=== PATIENT | female | born 1965 | race Caucasian/White ===

== ENCOUNTER 2017-07-01 18:29 | Emergency (ER) | payer SELFPAY ==
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
[2017-07-01 18:44] VITALS: BP 114/70; PULSE 68; TEMP 97.2; BMI 20.1
[2017-07-01] MEDS ORDERED: SODIUM CHLORIDE 0.9% 1000 ML INFUS.BAG IV ONE (18:44)
[2017-07-01] MEDS ORDERED: METOCLOPRAMIDE HCL INJECTION 10 MG/2 ML VIAL IVPUSH ONE (18:44)
[2017-07-01] MEDS ORDERED: ACETAMINOPHEN 1000 MG/100 ML VIAL (NON FORMULARY) IVPB ONE (18:45)
[2017-07-01] MEDS ORDERED: ACETAMINOPHEN INJECTION 100 ML IVPB ONE (19:05)
--- NOTE | 2017-07-01 19:34 | PDOC ---
*Physical Exam - Vital Signs Last Vital Signs Temp Pulse Resp BP Pulse Ox 97.2 F L 68 20 114/70 97 07/01/17 18:29 07/01/17 18:29 07/01/17 18:29 07/01/17 18:29 07/01/17 18:29 ED Treatment Course - LABORATORY CBC & Chemistry Diagram: 07/01/17 19:13 07/01/17 19:16 - ADDITIONAL ORDERS Additional order review: Laboratory Results 07/01/17 19:16 PT with INR Cancelled INR Cancelled - Medications Given in the ED: ED Medications Discontinued Medications Generic Name Dose Route Start Last Admin Trade Name Katie PRN Reason Stop Dose Admin Acetaminophen 1,000 mg 07/01/17 18:45 07/01/17 19:16 Ofirmev Injection - IVPB 07/01/17 18:46 1,000 mg ONCE ONE Administration Diphenhydramine HCl 12.5 mg 07/01/17 18:44 07/01/17 19:15 Benadryl Injection - IVPUSH 07/01/17 18:45 12.5 mg ONCE ONE Administration Metoclopramide HCl 10 mg 07/01/17 18:44 07/01/17 19:15 Reglan Injection - IVPUSH 07/01/17 18:45 10 mg ONCE ONE Administration Sodium Chloride 1,000 ml 07/01/17 18:44 07/01/17 19:15 Normal Saline - IV 07/01/17 18:45 1,000 ml ONCE ONE Administration Progress Note - Progress Note Progress Note: Care of this patient was transferred to co from Dr. Nevarez at 1900 hrs. Patient is a 52-year-old female who comes in complaining of a migraine headache. Patient has history of migraine headaches that have been stable and her last one was over 2 years ago. Patient said this migraine is much different than A the otherwise she's had it is associated with nausea and vomiting. Patient is otherwise healthy. Workup and head CT are pending 20:[address] is still pending Reevaluation of patient patient feels better no further vomiting sleeping comfortably 21:30 Patient woke up in complaining of some pain still and some nausea so patient was given Toradol, Zofran and some morphine. 22:30 Patient said she feels much better after the Toradol, Zofran and morphine. CT head no acute intracranial pathology Assessment and plan: This is a 52-year-old female who comes in with a migraine headache that is atypical for her. Patient had a complete workup because it is atypical for her. Patient workup was negative for any acute pathology including a head CT labs. Patient was given Reglan, Benadryl and fluids in the emergency room and feels better. Patient does have a neurologist she can follow-up with patient discharged home to follow-up with her neurologist. *DC/Admit/Observation/Transfer Diagnosis at time of Disposition: Migraine - Discharge Dispostion Disposition: HOME Admit: No - Referrals - Patient Instructions Additional Instructions: Continue your medications as prescribed for your migraine. I am sending a prescription for some nausea medication to your pharmacy get it filled U can take it as often as 3 times a day if needed. Follow-up with your neurologist. Return to the emergency department immediately with ANY new, persistent or worsening symptoms. Continue any medications as previously prescribed by your physician. You should follow up with your primary doctor as soon as possible regarding today's emergency department visit. . Please make sure your doctor reviews the results of your emergency evaluation. Thank you for coming to the Emergency Department today for your care. It was a pleasure to see you today. Please note that your evaluation is INCOMPLETE until you follow-up with your doctor. - Post Discharge Activity
[2017-07-01 19:40] LABS: ACTIVATED PTT 25.6 SECONDS (24.0-38.9)
[2017-07-01 19:41] LABS: BASOPHIL 1.2 % (0-2.0); EOSINOPHIL 0.6 % (0-4.5); MCH 27.5 pg (25.7-33.7); MCHC 33.1 g/dl (32.0-36.0); MEAN CELL VOLUME 83.1 fl (80-96); MEAN PLT VOLUME 9.9 fl (7.5-11.1); NEUTROPHILS 81.5 % (42.8-82.8); PLATELET COUNT 483 K/MM3 (134-434); RDW 13.1 % (11.6-15.6); WHITE BLOOD COUNT 9.9 K/mm3 (4.0-10.8)
[2017-07-01 19:44] LABS: INR 1.06 (0.82-1.09); PROTHROMBIN TIME (PATIENT) 11.8 SEC (10.2-13.0)
[2017-07-01 19:59] LABS: PH,URINE 7.5 (4.5-8); URINE APPEARANCE Cloudy; URINE BILIRUBIN Negative (NEGATIVE); URINE BLOOD Negative (NEGATIVE); URINE COLOR YELLOW; URINE GLUCOSE (UA) Negative (NEGATIVE); URINE KETONE 1+ (NEGATIVE); URINE LEUK ESTERASE 1+ (NEGATIVE); URINE NITRITE Negative (NEGATIVE); URINE PROTEIN Negative (NEGATIVE); URINE UROBILINOGEN 0.2 (0.2-1.0)
[2017-07-01 20:08] LABS: ALBUMIN 3.8 g/dl (3.5-5.0); ALK PHOS 40 U/L (32-92); ANION GAP 6 (8-16); BILIRUBIN,TOTAL 1.1 mg/dl (0.2-1.0); CO2 23 mmol/L (22-28); CREATININE 0.6 mg/dl (0.6-1.3); GLUCOSE,RANDOM 99 mg/dl (74-106); SGOT/AST 16 U/L (10-42); SGPT/ALT 16 U/L (10-40); TOT PROT 6.3 g/dl (6.4-8.3)
[2017-07-01] MEDS ORDERED: KETOROLAC TROMETHAMINE 30 MG/1 ML VIAL IVPUSH ONE (21:44)
[2017-07-01] MEDS ORDERED: ONDANSETRON 4 MG/2 ML VIAL IVPB ONE (21:44)
[2017-07-01] MEDS ORDERED: morphine CARPU-JECT 4 MG/1 ML DISP.SYRIN IVPUSH ONE (21:44)
[2017-07-01] MEDS ORDERED: KETOROLAC TROMETHAMINE 30 MG/1 ML VIAL ONE (21:45)
[2017-07-01] MEDS ORDERED: ONDANSETRON 4 MG/2 ML VIAL ONE (21:46)
[2017-07-01] MEDS ORDERED: morphine SULFATE 4 MG/ML VIAL ONE (21:46)
[2017-07-01 23:09] LABS: URINE RBC 0-3 /hpf (0-3)
== END 2017-07-01 22:42 | disposition home or self-care (01) ==
LOC: FER 18:29
PROC: 3E0337Z Introduction of Electrolytic and Water Balance Substance into Peripheral Vein, Percutaneous Approach (ICD-10-PCS; principal; 2017-07-01)
PROC: 3E0333Z Introduction of Anti-inflammatory into Peripheral Vein, Percutaneous Approach (ICD-10-PCS; 2017-07-01)
PROC: 3E033NZ Introduction of Analgesics, Hypnotics, Sedatives into Peripheral Vein, Percutaneous Approach (ICD-10-PCS; 2017-07-01)
PROC: 3E033GC Introduction of Other Therapeutic Substance into Peripheral Vein, Percutaneous Approach (ICD-10-PCS; 2017-07-01)
DX: R42 Dizziness and giddiness (principal); G43.909 Migraine, unspecified, not intractable, without status migrainosus
CPT/HCPCS: 36415; 70450-TC; 80053; 81003; 81015; 83690; 83735; 84703; 85025; 85610; 85730; 99283-25

== ENCOUNTER 2018-04-26 00:35 | Emergency (ER) | payer OTHER ==
[2018-04-26 00:45] VITALS: BP 142/83; PULSE 61; TEMP 98.6; BMI 19.2
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
[2018-04-26] MEDS ORDERED: IBUPROFEN 600 MG TABLET (FP) PO ONE ×2 (00:51→00:52)
== END 2018-04-26 01:26 | disposition home or self-care (01) ==
LOC: FER 00:35
PROC: 0HQ0XZZ Repair Scalp Skin, External Approach (ICD-10-PCS; principal; 2018-04-26)
DX: S01.01XA Laceration without foreign body of scalp, initial encounter (principal); S20.219A Contusion of unspecified front wall of thorax, initial encounter; W22.09XA Striking against other stationary object, initial encounter; Y93.89 Activity, other specified; Y92.89 Other specified places as the place of occurrence of the external cause
CPT/HCPCS: 12001; 71046-TC-FY; 71101-TC-FY; 99281-25

== ENCOUNTER 2018-12-23 18:54 | Emergency (ER) | payer OTHER ==
[2018-12-23 19:03] VITALS: BMI 20.1
[2018-12-23] MEDS ORDERED: KETOROLAC TROMETHAMINE 30 MG/1 ML VIAL IVPUSH ONE (19:21)
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
[2018-12-23] MEDS ORDERED: SODIUM CHLORIDE 1,000 ML IV SCH (19:30)
[2018-12-23] MEDS ORDERED: KETOROLAC TROMETHAMINE 30 MG/1 ML VIAL ONE (19:37)
[2018-12-23 19:38] LABS: HCG,QUALITATIVE URINE Negative
[2018-12-23 19:44] LABS: BASO % 0.3 % (0-2.0); EOS % 0.2 % (0-4.5); HEMATOCRIT 37.5 % (32.4-45.2); HEMOGLOBIN 12.4 GM/dl (10.7-15.3); LYMPH % 15.2 % (8-40); MCH 27.9 pg (25.7-33.7); MCHC 33.1 g/dl (32.0-36.0); MEAN CELL VOLUME 84.2 fl (80-96); MEAN PLT VOLUME 8.5 fl (7.5-11.1); MONO % 11.1 % (3.8-10.2); NEUT % 73.2 % (42.8-82.8); PLATELET COUNT 395 K/MM3 (134-434); RBC 4.46 M/mm3 (3.60-5.2); RDW 12.5 % (11.6-15.6); WHITE BLOOD COUNT 9.1 K/mm3 (4.0-10.8)
[2018-12-23 19:51] LABS: EPITHELIAL CELLS FEW /hpf
[2018-12-23 19:57] LABS: ALBUMIN 4.1 g/dl (3.4-5.0); BILIRUBIN,TOTAL 0.7 mg/dl (0.2-1); CALCIUM 9.7 mg/dl (8.5-10); CREATININE 0.9 mg/dl (0.55-1.3); TOT PROT 6.6 g/dl (6.4-8.2)
[2018-12-23 21:23] VITALS: BP 118/77; TEMP 98.9
[2018-12-23 21:24] VITALS: PULSE 57
== END 2018-12-23 21:30 | disposition home or self-care (01) ==
LOC: FER 18:54
PROC: 3E0333Z Introduction of Anti-inflammatory into Peripheral Vein, Percutaneous Approach (ICD-10-PCS; principal; 2018-12-23)
PROC: 3E0337Z Introduction of Electrolytic and Water Balance Substance into Peripheral Vein, Percutaneous Approach (ICD-10-PCS; 2018-12-23)
DX: N20.0 Calculus of kidney (principal)
CPT/HCPCS: 36415; 74176-TC; 80053; 81003; 81015; 84703; 85025; 96361; 96374; 99284-25; J7030

== ENCOUNTER 2020-11-07 07:26 | Emergency (ER) | payer OTHER ==
[2020-11-07 07:39] VITALS: BMI 21.9
[2020-11-07] MEDS ORDERED: ACETAMINOPHEN 1000 MG/100 ML VIAL (NON FORMULARY) IVPB ONE (08:05)
[2020-11-07] MEDS ORDERED: SODIUM CHLORIDE 1,000 ML IV STA (08:05)
[2020-11-07] MEDS ORDERED: FAMOTIDINE 20 MG/50 ML IVPB 20 MG/50 ML MG IVPB ONE ×2 (08:05→08:43)
[2020-11-07] MEDS ORDERED: METOCLOPRAMIDE HCL INJECTION 10 MG/2 ML VIAL IVPB ONE (08:05)
[2020-11-07] MEDS ORDERED: ACETAMINOPHEN INJECTION 100 ML IVPB ONE (08:43)
[2020-11-07] MEDS ORDERED: METOCLOPRAMIDE HCL INJECTION 10 MG/2 ML VIAL ONE (08:43)
[2020-11-07 09:08] LABS: BASO % 0.3 % (0-2.0); HEMATOCRIT 37.8 % (32.4-45.2); HEMOGLOBIN 12.5 GM/dl (10.7-15.3); LYMPH % 20.5 % (8-40); MCH 27.6 pg (25.7-33.7); MCHC 33.1 g/dl (32.0-36.0); MEAN CELL VOLUME 83.4 fl (80-96); MONO % 8.7 % (3.8-10.2); NEUT % 70.5 % (42.8-82.8); PLATELET COUNT 305 K/MM3 (134-434); RBC 4.53 M/mm3 (3.60-5.2); RDW 13.3 % (11.6-15.6); WHITE BLOOD COUNT 5.8 K/mm3 (4.0-10.8)
[2020-11-07] MEDS ORDERED: KETOROLAC TROMETHAMINE 30 MG/1 ML VIAL IVPUSH ONE (10:37)
[2020-11-07] MEDS ORDERED: ONDANSETRON 4 MG/2 ML VIAL IVPUSH ONE (10:37)
[2020-11-07] MEDS ORDERED: KETOROLAC TROMETHAMINE 30 MG/1 ML VIAL ONE (10:38)
[2020-11-07] MEDS ORDERED: ONDANSETRON 4 MG/2 ML VIAL ONE (10:38)
[2020-11-07 11:00] LABS: POTASSIUM 3.8 mmol/L (3.5-5.1)
[2020-11-07 11:01] LABS: CALCIUM 8.6 mg/dL (8.5-10.1)
[2020-11-07 11:02] LABS: ALBUMIN 3.4 g/dl (3.4-5.0); BLOOD UREA NITROGEN 9.2 mg/dL (7-18)
[2020-11-07 11:05] LABS: CREATININE 0.7 mg/dL (0.55-1.3)
[2020-11-07 11:07] LABS: BILIRUBIN,TOTAL 0.7 mg/dL (0.2-1); TOT PROT 6.8 g/dl (6.4-8.2)
[2020-11-07 12:33] VITALS: BP 121/63; PULSE 73; TEMP 98.7
== END 2020-11-07 12:38 | disposition home or self-care (01) ==
LOC: FER 07:26
PROC: 3E0333Z Introduction of Anti-inflammatory into Peripheral Vein, Percutaneous Approach (ICD-10-PCS; principal; 2020-11-07)
PROC: 3E033GC Introduction of Other Therapeutic Substance into Peripheral Vein, Percutaneous Approach (ICD-10-PCS; 2020-11-07)
PROC: 3E0333Z Introduction of Anti-inflammatory into Peripheral Vein, Percutaneous Approach (ICD-10-PCS; 2020-11-07)
PROC: 3E033GC Introduction of Other Therapeutic Substance into Peripheral Vein, Percutaneous Approach (ICD-10-PCS; 2020-11-07)
PROC: 3E033GC Introduction of Other Therapeutic Substance into Peripheral Vein, Percutaneous Approach (ICD-10-PCS; 2020-11-07)
PROC: 3E0337Z Introduction of Electrolytic and Water Balance Substance into Peripheral Vein, Percutaneous Approach (ICD-10-PCS; 2020-11-07)
DX: R11.0 Nausea (principal); G43.909 Migraine, unspecified, not intractable, without status migrainosus; U07.1 COVID-19
CPT/HCPCS: 36415; 80053; 85025; 96361; 96374; 96375; 99284-25; J0131